=== PATIENT | female | born 1945 | race Caucasian/White ===

== ENCOUNTER 2020-12-05 19:53 | Inpatient (IN) | payer MEDICARE ==
[~2020-12-05] VITALS: Ht 162.6 cm; Wt 97.5 kg
[2020-12-05] MEDS ORDERED: ACETAMINOPHEN 325 MG TAB PO ONE (21:30)
[2020-12-05] MEDS ORDERED: AZITHROMYCIN 500MG/NS 250 ML 250 ML IV ONE (22:00)
[2020-12-05] MEDS ORDERED: POTASSIUM CHLORIDE 20 MEQ TAB CR PO STA (22:10)
[2020-12-05] MEDS ORDERED: DEXAMETHASONE SOD PHOS INJ 4 MG/ML VIAL IV ONE (22:15)
[2020-12-05] MEDS ORDERED: CEFTRIAXONE SOD 1 GM VIAL IV SCH (22:15)
[2020-12-05] MEDS ORDERED: DEXAMETHASONE SOD PHOS INJ 4 MG/ML VIAL ONE (23:15)
[2020-12-05] MEDS ORDERED: POTASSIUM CHLORIDE 20 MEQ TAB CR PO ONE ×2 (23:16→23:55)
[2020-12-05] MEDS ORDERED: AZITHROMYCIN 500MG/NS 250 ML 250 ML ONE (23:16)
[2020-12-05] MEDS ORDERED: CEFTRIAXONE SOD 1 GM/NS 50 ML 50 ML IV ONE (23:16)
[2020-12-05] MEDS ORDERED: SODIUM CHLORIDE FLUSH 10 ML SYR INJ PRN (23:45)
[2020-12-06] VITALS (8 sets, daily range): BP systolic 121–134; BP diastolic 58–79
[2020-12-06] MEDS ORDERED: CYMBALTA30 MG (05:29)
[2020-12-06] MEDS ORDERED: FEXOFENADINE H180 MG PO (05:29)
[2020-12-06] MEDS ORDERED: ACETAMINOPHEN325 M1 PO (05:29)
[2020-12-06] MEDS ORDERED: METOPROLOL TART25 MG PO (05:29)
[2020-12-06] MEDS ORDERED: ASPIRIN81 MG PO (05:29)
[2020-12-06] MEDS ORDERED: FLUTICASONE PRO16 GM (05:29)
[2020-12-06] MEDS ORDERED: TIZANIDINE HCL4 MG PO (05:29)
[2020-12-06] MEDS ORDERED: LEVOTHYROXINE125 MC1 PO (05:29)
[2020-12-06] MEDS ORDERED: DITROPAN XL5 MG PO (05:29)
[2020-12-06] MEDS ORDERED: MULTI-VITAMIN1 EACH PO (05:29)
[2020-12-06] MEDS ORDERED: LOSARTAN POTAS100 MG PO (05:29)
[2020-12-06] MEDS ORDERED: CEVIMELINE HCL30 MG PO (05:29)
[2020-12-06] MEDS ORDERED: CLOBETASOL1 EA/15 GM TOP (05:29)
[2020-12-06] MEDS ORDERED: PANTOPRAZOLE SO40 MG PO (05:29)
[2020-12-06] MEDS ORDERED: VERAPAMIL ER120 MG PO (05:29)
[2020-12-06 07:43] LABS: HEMATOCRIT 35.3 % (34.2-44.1); HEMOGLOBIN 12.2 g/dL (12.0-16.0); LYMPHOCYTES # (AUTO) 0.4 (1.0-3.2); LYMPHOCYTES % 22.5 % (18.0-39.1); MEAN CORPUSCULAR HEMOGLOBIN 30.6 pg (28-32); MEAN CORPUSCULAR HGB CONC 34.6 g/dL (31-35); MEAN CORPUSCULAR VOLUME 88.5 fL (81-99); MONOCYTES # (AUTO) 0.1 (0.2-0.8); MONOCYTES % 5.5 % (4.4-11.3); NEUTROPHILS # (AUTO) 1.3 (2.1-6.9); PLATELET COUNT 164 x10e3/uL (140-360); RED BLOOD COUNT 3.99 x10e6/uL (3.6-5.1)
[2020-12-06 08:02] LABS: ALANINE AMINOTRANSFERASE 32 IU/L (0-55); ALBUMIN/GLOBULIN RATIO 0.9 (0.8-2.0); ANION GAP 12.5 mmol/L (8-16); BLOOD UREA NITROGEN 11 mg/dL (7-26); BUN/CREATININE RATIO 14 (6-25); CALCIUM 8.1 mg/dL (8.4-10.2); CARBON DIOXIDE 27 mmol/L (22-29); CHLORIDE 95 mmol/L (98-107); CREATININE, SERUM 0.79 mg/dL (0.57-1.11); EST GLOMERULAR FILTRATION RATE > 60 ML/MIN (60-); GLUCOSE 163 mg/dL (74-118); POTASSIUM 3.5 mmol/L (3.5-5.1); SODIUM 131 mmol/L (136-145)
[2020-12-06] MEDS ORDERED: LORATADINE 10 MG TAB PO SCH (08:30)
[2020-12-06] MEDS ORDERED: ACETAMINOPHEN 325 MG TAB PO PRN (08:30)
[2020-12-06] MEDS ORDERED: FUROSEMIDE INJ 10 MG/ML 4 ML VIAL IV ONE (08:30)
[2020-12-06] MEDS ORDERED: FLUTICASONE PROPIONATE NASAL SPRAY NS SCH (08:30)
[2020-12-06] MEDS ORDERED: CLOBETASOL PROPIONATE 0.05% CRM 15 GM TUBE TOP SCH (08:30)
[2020-12-06 08:37] LABS: LYMPHOCYTES % (MANUAL) 12 % (19-48); MONOCYTES % (MANUAL) 4 % (3.4-9.0); NEUTROPHILS % (MANUAL) 81 % (40-74); PLATELET ESTIMATE ADEQUATE; PLATELET MORPHOLOGY COMMENT NORMAL; RBC MORPHOLOGY COMMENT NORMAL
[2020-12-06 09:00] LABS: ALKALINE PHOSPHATASE 69 IU/L (40-150)
[2020-12-06] MEDS: DEXAMETHASONE SOD PHOS 10 MG/1 ML VIAL IV SCH (10:14)
[2020-12-06] MEDS: PANTOPRAZOLE SOD 40 MG TABEC PO SCH (10:15)
[2020-12-06] MEDS: MULTIVITAMINS/MINERALS TAB PO SCH (10:15)
[2020-12-06] MEDS: DULOXETINE HCL 30 MG DELAYED RELEASE PO SCH (10:15)
[2020-12-06] MEDS: OXYBUTYNIN CHLORIDE XL 5 MG TAB PO SCH (10:15)
[2020-12-06] MEDS: ASPIRIN 81 MG CHEW TAB PO SCH (10:15)
[2020-12-06] MEDS: LEVOTHYROXINE SODIUM 125 MCG TAB PO SCH (10:16)
[2020-12-06] MEDS: METOPROLOL TARTRATE 25 MG TAB PO SCH ×2 (10:19→17:00)
[2020-12-06] MEDS ORDERED: REMDESIVIR 200MG/NS 100ML 200 MG in SODIUM CHLORIDE 0.9% 100 ML 100 ML IV ONE (18:00)
[2020-12-06] MEDS: TIZANIDINE HCL 4 MG TAB PO SCH (20:30)
[2020-12-06] MEDS: ENOXAPARIN SOD INJ 40 MG/0.4 ML SYR SC SCH (20:30)
[2020-12-06] MEDS ORDERED: VERAPAMIL HCL 120 MG TABSR PO SCH (21:00)
[2020-12-06] MEDS: CEVIMELINE HCL 30 MG PO SCH (21:00)
[2020-12-06] MEDS ORDERED: SODIUM CHLORIDE 0.9% 250ML 250 ML ONE (21:03)
[2020-12-06] MEDS: CEFTRIAXONE SOD 1 GRAM/0.9% SOD CHL 50ML BAG IV SCH (21:55)
[2020-12-06] MEDS: AZITHROMYCIN 500MG/SOD CHL 0.9% 250ML BAG IV SCH (22:24)
[2020-12-06] MEDS ORDERED: CEFTRIAXONE SOD 1 GRAM/0.9% SOD CHL 50ML BAG IV SCH (23:00)
[2020-12-07] VITALS (8 sets, daily range): BP systolic 106–130; BP diastolic 51–71
[2020-12-07] MEDS: LEVOTHYROXINE SODIUM 125 MCG TAB PO SCH (05:34)
[2020-12-07 06:10] LABS: BASOPHILS % 0.2 % (0.0-1.0); HEMATOCRIT 34.5 % (34.2-44.1); HEMOGLOBIN 11.7 g/dL (12.0-16.0); LYMPHOCYTES # (AUTO) 0.7 (1.0-3.2); LYMPHOCYTES % 10.4 % (18.0-39.1); MEAN CORPUSCULAR HEMOGLOBIN 30.5 pg (28-32); MEAN CORPUSCULAR HGB CONC 33.9 g/dL (31-35); MEAN CORPUSCULAR VOLUME 89.8 fL (81-99); MONOCYTES # (AUTO) 0.5 (0.2-0.8); MONOCYTES % 8.6 % (4.4-11.3); NEUTROPHILS % 80.5 % (38.7-80.0); PLATELET COUNT 183 x10e3/uL (140-360); RED BLOOD COUNT 3.84 x10e6/uL (3.6-5.1)
[2020-12-07 06:41] LABS: ALANINE AMINOTRANSFERASE 37 IU/L (0-55); ALBUMIN 2.8 g/dL (3.5-5.0); ALBUMIN/GLOBULIN RATIO 0.8 (0.8-2.0); ALKALINE PHOSPHATASE 60 IU/L (40-150); ANION GAP 11.3 mmol/L (8-16); BLOOD UREA NITROGEN 15 mg/dL (7-26); BUN/CREATININE RATIO 19 (6-25); CALCIUM 7.9 mg/dL (8.4-10.2); CARBON DIOXIDE 28 mmol/L (22-29); CHLORIDE 97 mmol/L (98-107); CREATININE, SERUM 0.77 mg/dL (0.57-1.11); EST GLOMERULAR FILTRATION RATE > 60 ML/MIN (60-); GLUCOSE 139 mg/dL (74-118); POTASSIUM 3.3 mmol/L (3.5-5.1); SODIUM 133 mmol/L (136-145)
[2020-12-07] MEDS: CEVIMELINE HCL 30 MG PO SCH ×3 (09:00→21:00)
[2020-12-07] MEDS: ASPIRIN 81 MG CHEW TAB PO SCH (09:50)
[2020-12-07] MEDS: MULTIVITAMINS/MINERALS TAB PO SCH (09:50)
[2020-12-07] MEDS: PANTOPRAZOLE SOD 40 MG TABEC PO SCH (09:50)
[2020-12-07] MEDS: DEXAMETHASONE SOD PHOS 10 MG/1 ML VIAL IV SCH (09:50)
[2020-12-07] MEDS: OXYBUTYNIN CHLORIDE XL 5 MG TAB PO SCH (09:50)
[2020-12-07] MEDS: DULOXETINE HCL 30 MG DELAYED RELEASE PO SCH (09:50)
[2020-12-07] MEDS: METOPROLOL TARTRATE 25 MG TAB PO SCH ×2 (09:52→16:09)
[2020-12-07] MEDS ORDERED: POTASSIUM BICARBONATE/CIT AC 20 MEQ TABLET.EFF PO ONE (14:00)
[2020-12-07] MEDS: REMDESIVIR 100MG/NS 100ML 100 MG in SODIUM CHLORIDE 0.9% 100 ML 100 ML IV SCH (16:09)
[2020-12-07] MEDS: ENOXAPARIN SOD INJ 40 MG/0.4 ML SYR SC SCH (16:10)
[2020-12-07] MEDS: TIZANIDINE HCL 4 MG TAB PO SCH (21:32)
[2020-12-07] MEDS: CEFTRIAXONE SOD 1 GRAM/0.9% SOD CHL 50ML BAG IV SCH (21:32)
[2020-12-07] MEDS: AZITHROMYCIN 500MG/SOD CHL 0.9% 250ML BAG IV SCH (23:10)
[2020-12-08] VITALS (8 sets, daily range): BP systolic 113–138; BP diastolic 58–69
[2020-12-08] MEDS: LEVOTHYROXINE SODIUM 125 MCG TAB PO SCH (05:30)
[2020-12-08 06:21] LABS: BASOPHILS % 0.2 % (0.0-1.0); HEMATOCRIT 34.3 % (34.2-44.1); HEMOGLOBIN 11.5 g/dL (12.0-16.0); LYMPHOCYTES # (AUTO) 0.6 (1.0-3.2); LYMPHOCYTES % 9.3 % (18.0-39.1); MEAN CORPUSCULAR HEMOGLOBIN 30.5 pg (28-32); MEAN CORPUSCULAR HGB CONC 33.5 g/dL (31-35); MONOCYTES # (AUTO) 0.7 (0.2-0.8); MONOCYTES % 10.9 % (4.4-11.3); NEUTROPHILS # (AUTO) 4.8 (2.1-6.9); NEUTROPHILS % 79.4 % (38.7-80.0); PLATELET COUNT 215 x10e3/uL (140-360); RED BLOOD COUNT 3.77 x10e6/uL (3.6-5.1); RED CELL DISTRIBUTION WIDTH 12.1 % (11.7-14.4)
[2020-12-08 07:00] LABS: ALANINE AMINOTRANSFERASE 63 IU/L (0-55); ALBUMIN 2.7 g/dL (3.5-5.0); ALBUMIN/GLOBULIN RATIO 0.9 (0.8-2.0); ALKALINE PHOSPHATASE 58 IU/L (40-150); ANION GAP 11.6 mmol/L (8-16); BLOOD UREA NITROGEN 17 mg/dL (7-26); BUN/CREATININE RATIO 22 (6-25); CARBON DIOXIDE 30 mmol/L (22-29); CHLORIDE 97 mmol/L (98-107); CREATININE, SERUM 0.77 mg/dL (0.57-1.11); EST GLOMERULAR FILTRATION RATE > 60 ML/MIN (60-); GLUCOSE 133 mg/dL (74-118); POTASSIUM 3.6 mmol/L (3.5-5.1); SODIUM 135 mmol/L (136-145)
[2020-12-08] MEDS: CEVIMELINE HCL 30 MG PO SCH ×3 (09:00→21:00)
[2020-12-08] MEDS: DULOXETINE HCL 30 MG DELAYED RELEASE PO SCH (09:14)
[2020-12-08] MEDS: OXYBUTYNIN CHLORIDE XL 5 MG TAB PO SCH (09:14)
[2020-12-08] MEDS: ASPIRIN 81 MG CHEW TAB PO SCH (09:14)
[2020-12-08] MEDS: MULTIVITAMINS/MINERALS TAB PO SCH (09:18)
[2020-12-08] MEDS: PANTOPRAZOLE SOD 40 MG TABEC PO SCH (09:18)
[2020-12-08] MEDS: DEXAMETHASONE SOD PHOS 10 MG/1 ML VIAL IV SCH (09:19)
[2020-12-08] MEDS: METOPROLOL TARTRATE 25 MG TAB PO SCH ×2 (09:19→17:50)
[2020-12-08] MEDS: REMDESIVIR 100MG/NS 100ML 100 MG in SODIUM CHLORIDE 0.9% 100 ML 100 ML IV SCH (17:50)
[2020-12-08] MEDS: ENOXAPARIN SOD INJ 40 MG/0.4 ML SYR SC SCH (17:50)
[2020-12-08] MEDS: TIZANIDINE HCL 4 MG TAB PO SCH (21:00)
[2020-12-08] MEDS: CEFTRIAXONE SOD 1 GRAM/0.9% SOD CHL 50ML BAG IV SCH (21:00)
[2020-12-08] MEDS: AZITHROMYCIN 500MG/SOD CHL 0.9% 250ML BAG IV SCH (23:00)
[2020-12-09] VITALS (8 sets, daily range): BP systolic 108–149; BP diastolic 62–74
[2020-12-09] MEDS: LEVOTHYROXINE SODIUM 125 MCG TAB PO SCH (06:05)
[2020-12-09] MEDS: CEVIMELINE HCL 30 MG PO SCH ×3 (09:00→20:17)
[2020-12-09] MEDS: OXYBUTYNIN CHLORIDE XL 5 MG TAB PO SCH (09:18)
[2020-12-09] MEDS: ASPIRIN 81 MG CHEW TAB PO SCH (09:18)
[2020-12-09] MEDS: DULOXETINE HCL 30 MG DELAYED RELEASE PO SCH (09:18)
[2020-12-09] MEDS: DEXAMETHASONE SOD PHOS 10 MG/1 ML VIAL IV SCH (09:18)
[2020-12-09] MEDS: PANTOPRAZOLE SOD 40 MG TABEC PO SCH (09:19)
[2020-12-09] MEDS: METOPROLOL TARTRATE 25 MG TAB PO SCH ×2 (09:19→16:11)
[2020-12-09] MEDS: MULTIVITAMINS/MINERALS TAB PO SCH (09:19)
[2020-12-09] MEDS: REMDESIVIR 100MG/NS 100ML 100 MG in SODIUM CHLORIDE 0.9% 100 ML 100 ML IV SCH (16:09)
[2020-12-09] MEDS: ENOXAPARIN SOD INJ 40 MG/0.4 ML SYR SC SCH (16:14)
[2020-12-09] MEDS ORDERED: LOPERAMIDE HCL 2 MG CAP PO PRN (21:00)
[2020-12-09] MEDS: LACTOBACILLUS ACIDOPHILUS CAPSULE PO SCH (21:50)
[2020-12-09] MEDS: CEFTRIAXONE SOD 1 GRAM/0.9% SOD CHL 50ML BAG IV SCH (21:50)
[2020-12-09] MEDS: TIZANIDINE HCL 4 MG TAB PO SCH (21:50)
[2020-12-09] MEDS: AZITHROMYCIN 500MG/SOD CHL 0.9% 250ML BAG IV SCH (22:57)
[2020-12-10] VITALS (8 sets, daily range): BP systolic 130–148; BP diastolic 61–87
[2020-12-10] MEDS: LEVOTHYROXINE SODIUM 125 MCG TAB PO SCH (05:35)
[2020-12-10 06:11] LABS: BASOPHILS % 0.2 % (0.0-1.0); HEMATOCRIT 35.8 % (34.2-44.1); HEMOGLOBIN 12.1 g/dL (12.0-16.0); LYMPHOCYTES # (AUTO) 0.8 (1.0-3.2); MEAN CORPUSCULAR HEMOGLOBIN 30.5 pg (28-32); MEAN CORPUSCULAR HGB CONC 33.8 g/dL (31-35); MEAN CORPUSCULAR VOLUME 90.2 fL (81-99); MONOCYTES # (AUTO) 0.7 (0.2-0.8); NEUTROPHILS # (AUTO) 4.8 (2.1-6.9); NEUTROPHILS % 74.7 % (38.7-80.0); PLATELET COUNT 276 x10e3/uL (140-360); RED BLOOD COUNT 3.97 x10e6/uL (3.6-5.1); RED CELL DISTRIBUTION WIDTH 11.9 % (11.7-14.4)
[2020-12-10 06:30] LABS: ALANINE AMINOTRANSFERASE 63 IU/L (0-55); ALBUMIN 2.8 g/dL (3.5-5.0); ALBUMIN/GLOBULIN RATIO 0.9 (0.8-2.0); ALKALINE PHOSPHATASE 56 IU/L (40-150); ANION GAP 9.4 mmol/L (8-16); BLOOD UREA NITROGEN 16 mg/dL (7-26); BUN/CREATININE RATIO 23 (6-25); CALCIUM 7.7 mg/dL (8.4-10.2); CARBON DIOXIDE 28 mmol/L (22-29); CHLORIDE 100 mmol/L (98-107); EST GLOMERULAR FILTRATION RATE > 60 ML/MIN (60-); GLUCOSE 106 mg/dL (74-118); POTASSIUM 3.4 mmol/L (3.5-5.1); SODIUM 134 mmol/L (136-145)
[2020-12-10] MEDS: CEVIMELINE HCL 30 MG PO SCH ×3 (09:00→21:00)
[2020-12-10] MEDS: OXYBUTYNIN CHLORIDE XL 5 MG TAB PO SCH (09:01)
[2020-12-10] MEDS: PANTOPRAZOLE SOD 40 MG TABEC PO SCH (09:01)
[2020-12-10] MEDS: LACTOBACILLUS ACIDOPHILUS CAPSULE PO SCH ×3 (09:01→21:05)
[2020-12-10] MEDS: DULOXETINE HCL 30 MG DELAYED RELEASE PO SCH (09:01)
[2020-12-10] MEDS: METOPROLOL TARTRATE 25 MG TAB PO SCH ×2 (09:01→15:53)
[2020-12-10] MEDS: MULTIVITAMINS/MINERALS TAB PO SCH (09:01)
[2020-12-10] MEDS: ASPIRIN 81 MG CHEW TAB PO SCH (09:01)
[2020-12-10] MEDS: DEXAMETHASONE SOD PHOS 10 MG/1 ML VIAL IV SCH (09:02)
[2020-12-10] MEDS ORDERED: POTASSIUM BICARBONATE/CIT AC 20 MEQ TABLET.EFF PO NR ×2 (10:00→12:00)
[2020-12-10] MEDS: REMDESIVIR 100MG/NS 100ML 100 MG in SODIUM CHLORIDE 0.9% 100 ML 100 ML IV SCH (15:52)
[2020-12-10] MEDS: ENOXAPARIN SOD INJ 40 MG/0.4 ML SYR SC SCH (15:53)
[2020-12-10] MEDS: TIZANIDINE HCL 4 MG TAB PO SCH (21:06)
[2020-12-10] MEDS: CEFTRIAXONE SOD 1 GRAM/0.9% SOD CHL 50ML BAG IV SCH (21:06)
[2020-12-11] MEDS: LEVOTHYROXINE SODIUM 125 MCG TAB PO SCH (06:00)
[2020-12-11 08:00] VITALS: BP 146/73
[2020-12-11] MEDS: CEVIMELINE HCL 30 MG PO SCH (08:07)
[2020-12-11] MEDS: DEXAMETHASONE SOD PHOS 10 MG/1 ML VIAL IV SCH (08:07)
[2020-12-11] MEDS: ASPIRIN 81 MG CHEW TAB PO SCH (08:07)
[2020-12-11] MEDS: LACTOBACILLUS ACIDOPHILUS CAPSULE PO SCH (08:08)
[2020-12-11] MEDS: MULTIVITAMINS/MINERALS TAB PO SCH (08:08)
[2020-12-11] MEDS: PANTOPRAZOLE SOD 40 MG TABEC PO SCH (08:08)
[2020-12-11] MEDS: DULOXETINE HCL 30 MG DELAYED RELEASE PO SCH (08:08)
[2020-12-11] MEDS: OXYBUTYNIN CHLORIDE XL 5 MG TAB PO SCH (08:08)
[2020-12-11] MEDS: METOPROLOL TARTRATE 25 MG TAB PO SCH (08:16)
[2020-12-11 12:14] VITALS: BP 153/69
[2020-12-11] MEDS ORDERED: DECADRON6 MG PO (15:08)
== END 2020-12-11 16:27 | disposition home or self-care (01) | DRG 177 ==
LOC: FSED 20:27 → ERHOLD 23:42 → MED/SURG2 12-06 03:02
PROVIDERS: ADMIT Internal Medicine; ATTEND Internal Medicine
PROC: 8E0ZXY6 Isolation (ICD-10-PCS; 2020-12-05)
PROC: XW033E5 Introduction of Remdesivir Anti-infective into Peripheral Vein, Percutaneous Approach, New Technology Group 5 (ICD-10-PCS; principal; 2020-12-06)
DX: U07.1 COVID-19 (principal); J12.82 Pneumonia due to coronavirus disease 2019; J96.91 Respiratory failure, unspecified with hypoxia; E87.1 Hypo-osmolality and hyponatremia; F32.9 Major depressive disorder, single episode, unspecified; D70.9 Neutropenia, unspecified; Z85.42 Personal history of malignant neoplasm of other parts of uterus; E03.9 Hypothyroidism, unspecified; I10 Essential (primary) hypertension; M35.00 Sjogren syndrome, unspecified; E87.6 Hypokalemia; E88.09 Other disorders of plasma-protein metabolism, not elsewhere classified; E77.8 Other disorders of glycoprotein metabolism
CPT/HCPCS: 36415; 71046; 80048; 80053; 80076; 81003; 82553; 82948; 83880; 84443; 84484; 85025; 85379; 87040; 93005; 94760; 96374; 99284; J0456; J0696; J1100; J1650; J1940; J7050; U0002